=== PATIENT | male | born 1990 | race African-American/Black ===

== ENCOUNTER 2025-05-10 17:09 | Emergency (ER) | payer OTHER ==
[2025-05-10 17:24] VITALS: BP 136/89; PULSE 90; RESP 18; TEMP 98.7; BMI 21.7
[2025-05-10] MEDS ORDERED: NAPROXEN 500 MG TABLET ONE (17:47)
[2025-05-10] MEDS: NAPROXEN 500 MG TABLET PO ONE (17:49)
== END 2025-05-10 19:23 | disposition home or self-care (01) ==
LOC: JERFT 17:09
DX: G44.319 Acute post-traumatic headache, not intractable (principal); V44.6XXA Car passenger injured in collision with heavy transport vehicle or bus in traffic accident, initial encounter; Y92.481 Parking lot as the place of occurrence of the external cause
CPT/HCPCS: 99283-25